=== PATIENT | female | born 1980 | race Caucasian/White ===

== ENCOUNTER 2016-12-10 23:41 | Emergency (ER) | payer BC ==
[2016-12-11 00:02] LABS: CHLORIDE,CL 100 mmol/L (98-107); SODIUM,NA 137 mmol/L (136-145)
[2016-12-11] MEDS: Metoprolol Tartrate 5 MG/5 ML SDV IVPUSH SCH ×2 (00:02→00:30)
[2016-12-11] MEDS ORDERED: LORazepam 2 MG/ML MDV IVPUSH ONE (00:27)
--- NOTE | 2016-12-11 00:48 | EDM.PDOC ---
ED HISTORY OF PRESENT ILLNESS - General Chief Complaint: Chest Pain Stated Complaint: dizzy lightheaded, hot, chest tightness Time Seen by Provider: 12/10/16 23:45 Source of Information: Reports: Patient, EMS, EMS notes reviewed History Limitations: Reports: No limitations - History of Present Illness INITIAL COMMENTS - FREE TEXT/NARRATIVE: Was at work when had sudden onset of increased heart rate. [place] weak. No syncope. Episode resolved prior to ER. Pt anxious upon arrival to ER No previous hx/o same. No chest pain currently. No new meds No travel history No OTC supplements Timing/Duration: Reports: Hour(s):, Resolved prior to arrival Severity: moderate Location, General: Reports: chest Improves with: Reports: None Worsens with: Reports: None Associated Symptoms (General): Reports: weakness - Related Data Allergies/ADRs: Allergies Allergy/AdvReac Type Severity Reaction Status Date / Time No Known Allergies Allergy Verified 12/10/16 23:45 Past Medical History HEENT History: Reports: Impaired vision Cardiovascular History: Reports: None Respiratory History: Reports: None Gastrointestinal History: Reports: PUD Genitourinary History: Reports: None 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: , Spontaneous Musculoskeletal History: Reports: None Neurological History: Reports: None Endocrine/Metabolic History: Reports: None, Obesity/BMI 30+ Hematologic History: Reports: None Immunologic History: Reports: None Oncologic (Cancer) History: Reports: None - Infectious Disease History Infectious Disease History: Reports: Chicken pox - Past Surgical History Head Surgeries/Procedures: Reports: None HEENT Surgical History: Reports: Tonsillectomy Cardiovascular Surgical History: Reports: None Respiratory Surgical History: Reports: None GI Surgical History: Reports: Appendectomy, Bariatric procedure, Colonoscopy, EGD Female Surgical History: Reports: None Endocrine Surgical History: Reports: None Musculoskeletal Surgical History: Reports: None Oncologic Surgical History: Reports: None Dermatological Surgical History: Reports: None - Past Imaging History Past Imaging History: Reports: None. Denies: Mammogram Social & Family History - Family History HEENT: Reports: None Cardiac: Reports: CAD, Heart failure, Hypertension, [place] GI: Reports: None : Reports: None OBGYN: Reports: None Musculoskeletal: Reports: None Neurological: Reports: Alzheimers disease, CVA, Dementia, Parkinson's, Seizure Hematologic: Reports: None Dermatologic: Reports: None Oncologic: Reports: None - Tobacco Use Smoking Status *Q: Current Every Day Smoker Years of Tobacco use: 18 Packs/Tins Daily: 1 Used Tobacco, but Quit: No Second Hand Smoke Exposure: Yes - Caffeine Use Caffeine Use: Reports: Coffee (2 cups per day). Denies: Energy drinks, Soda, Tea - Alcohol Use Days Per Week of Alcohol Use: 3 (DWI in 2006 with no previous problems with alcohol abuse, treatment, etc. 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) ED ROS GENERAL - Review of Systems Review Of Systems: See Below Constitutional: Reports: weakness HEENT: Reports: No symptoms Respiratory: Reports: Shortness of Breath Cardiovascular: Reports: Palpitations GI/Abdominal: Reports: No symptoms ED EXAM, GENERAL - Physical Exam Exam: See Below Exam Limited By: No limitations General Appearance: alert, WD/WN, mild distress Ears: normal external exam Throat/Mouth: Normal oropharynx Head: atraumatic Neck: supple Respiratory/Chest: lungs clear, normal breath sounds Cardiovascular: regular rate, rhythm GI/Abdominal: soft Extremities: normal inspection, no pedal edema Neurological: alert, oriented, no motor/sensory deficits EKG INTERPRETATION Rhythm: NSR Course - Vital Signs Last Recorded V/S: Last Vital Signs Temp 37.2 C 12/10/16 23:46 Pulse 103 H 12/11/16 00:02 Resp 18 12/10/16 23:46 BP 135/87 12/11/16 00:02 Pulse Ox 100 12/10/16 23:46 - Orders/Labs/Meds Orders: Active Orders 24 hr Category Date Time Status EKG Documentation Completion [RC] STAT Care 12/10/16 23:47 Active Labs: Laboratory Tests 12/10/16 12/10/16 12/11/16 Range/Units 23:45 23:50 00:10 WBC 6.8 (4.0-10.2) K/uL RBC 4.72 (3.77-5.09) M/uL Hgb 14.0 (11.7-15.5) g/dL Hct 42.2 (34.0-46.0) % MCV 89.4 D (84.0-98.0) fL MCH 29.7 (28.2-33.3) pg MCHC 33.2 (31.7-36.0) g/dL RDW 13.3 (11.2-14.1) % Plt Count 236 (150-350) K/uL Neut % (Auto) 68.1 (45.0-80.0) % Lymph % (Auto) 22.7 (10.0-50.0) % [place] % (Auto) 7.8 (2.0-14.0) % Eos % (Auto) 0.4 (0.0-5.0) % Baso % (Auto) 1.0 (0.0-2.0) % Neut # (Auto) 4.60 (1.40-7.00) K/uL Lymph # (Auto) 1.54 (0.50-3.50) K/uL [place] # (Auto) 0.53 (0.00-1.00) K/uL Eos # (Auto) 0.03 (0.00-0.50) K/uL Baso # (Auto) 0.07 (0.00-0.20) K/uL D-Dimer, Quantitative 201 (0-400) ng/mL Sodium 137 (136-145) mmol/L Potassium 3.6 (3.5-5.1) mmol/L Chloride 100 (98-107) mmol/L Carbon Dioxide 23.2 (21.0-32.0) mmol/L BUN 10 (7-18) mg/dL Creatinine 0.67 (0.51-1.17) mg/dL Est Cr Clr Drug Dosing 100.24 mL/min Estimated GFR (MDRD) > 60 mL/min Glucose 114 H (74-106) mg/dL Calcium 9.0 (8.5-10.1) mg/dL Total Bilirubin 0.4 (0.2-1.0) mg/dL AST 25 (15-37) U/L ALT 21 (12-78) U/L Alkaline Phosphatase 67 (46-116) IU/L Troponin I 0.000 (0.000-0.056) ng/mL Total Protein 7.6 (6.4-8.2) g/dL Albumin 4.1 (3.4-5.0) g/dL Meds: Medications Discontinued Medications Generic Name Dose Route Start Last Admin Trade Name Julian PRN Reason Stop Dose Admin Lorazepam 0.5 mg 12/11/16 00:27 12/11/16 00:33 Ativan IVPUSH 12/11/16 00:28 0.5 mg ONETIME ONE Administration Metoprolol Tartrate 5 mg 12/10/16 23:45 12/11/16 00:30 Lopressor IVPUSH 12/10/16 23:56 Not Given Q5M YORDY - Re-Assessments/Exams Free Text/Narrative Re-Assessment/Exam: 12/11/16 00:46 Pt stable in ER. Pt observed in ER Work up unremarkable. No futher episodes of tachycardia Departure - Departure Time of Disposition: 02:00 Disposition: Home, Self-Care 01 Clinical Impression: Tachycardia Instructions: Nonspecific Chest Pain, [id number] Forms: ED Department Discharge - My Orders Last 24 Hours: My Active Orders 12/10/16 23:47 EKG Documentation Completion [RC] STAT - Assessment/Plan Last 24 Hours: My Active Orders 12/10/16 23:47 EKG Documentation Completion [RC] STAT
[2016-12-11 02:39] VITALS: BP 135/85
== END 2016-12-11 00:45 | disposition home or self-care (01) ==
LOC: LL.ED 23:41
DX: R00.0 Tachycardia, unspecified (principal); F17.210 Nicotine dependence, cigarettes, uncomplicated; E66.9 Obesity, unspecified; Z68.27 Body mass index [BMI] 27.0-27.9, adult; Z90.49 Acquired absence of other specified parts of digestive tract; Z98.84 Bariatric surgery status; Z98.890 Other specified postprocedural states
CPT/HCPCS: 36415; 80053; 84484; 85025; 85379; 96374; 96375; 99285; J2060; J3490

== ENCOUNTER 2020-10-31 07:13 | Emergency (ER) | payer BC ==
[2020-10-31] MEDS ORDERED: Sodium Chloride 0.9% 10 ML Syringe FLUSH PRN (07:43)
[2020-10-31 07:46] VITALS: PULSE 82
[2020-10-31 08:17] LABS: CHLORIDE,CL 103 mmol/L (98-107); SODIUM,NA 138 mmol/L (136-145)
--- NOTE | 2020-10-31 08:34 | EDM.PDOC ---
ED HPI GENERAL MEDICAL PROBLEM - General Chief Complaint: Syncope Stated Complaint: syncope Time Seen by Provider: 10/31/20 07:45 Source of Information: Reports: Patient History Limitations: Reports: No Limitations - History of Present Illness INITIAL COMMENTS - FREE TEXT/NARRATIVE: Patient had witness syncopal episode at [employer]. No seizure like movements noted. She felt fine during most of her overnight shift until just before this episode. Describes feeling light headed/woozy/hot flash sensation and she went to sit at desk. Syncopal episode happened at desk. Brief. When she woke up she described feeling weak all over. No history of similar episodes. Has history of single panic attack years ago for which she was started on Celexa. Has ongoing chronic anxiety but says she was not feeling anxious when this happened nor does she feel especially anxious here in ER. No new medications/supplements. No recent illness/injuries. No numbness/tingling. No pain complaint. No respiratory/CV/GI/ changes. 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: , Spontaneous Musculoskeletal History: Reports: None Neurological History: Reports: None Endocrine/Metabolic History: Reports: None, Obesity/BMI 30+ Hematologic History: Reports: None Immunologic History: Reports: None Oncologic (Cancer) History: Reports: None - Infectious Disease History Infectious Disease History: Reports: Chicken Pox - Past Surgical History Head Surgeries/Procedures: Reports: None HEENT Surgical History: Reports: Tonsillectomy Cardiovascular Surgical History: Reports: None Respiratory Surgical History: Reports: None GI Surgical History: Reports: Appendectomy, Bariatric Procedure, Colonoscopy, EGD Female Surgical History: Reports: None Endocrine Surgical History: Reports: None Musculoskeletal Surgical History: Reports: None Oncologic Surgical History: Reports: None Dermatological Surgical History: Reports: None - Past Imaging History Past Imaging History: Reports: None. Denies: Mammogram Social & Family History - Family History HEENT: Reports: None Cardiac: Reports: CAD, Heart Failure, Hypertension, [place] GI: Reports: None : Reports: None OBGYN: Reports: None Musculoskeletal: Reports: None Neurological: Reports: Alzheimers Disease, CVA, Dementia, Parkinson's, Seizure Hematologic: Reports: None Dermatologic: Reports: None Oncologic: Reports: None - Tobacco Use Tobacco Use Status *Q: Current Every Day Tobacco User Years of Tobacco use: 22 Packs/Tins Daily: 0.5 - Caffeine Use Caffeine Use: Reports: Coffee Other Caffeine Use: coffee 3-4 cups - Alcohol Use Days Per Week of Alcohol Use: 2 Number of Drinks Per Day: 2 Total Drinks Per Week: 4 - Recreational Drug Use Recreational Drug Use: No - Living Situation & Occupation Living situation: Reports: Occupation: Employed ED ROS GENERAL - Review of Systems Review Of Systems: See Below Constitutional: Reports: No Symptoms HEENT: Reports: No Symptoms Respiratory: Reports: No Symptoms Cardiovascular: Reports: Blood Pressure Problem (BP elevated at [employer] after incident with diastolic around 114. ), Lightheadedness, Syncope. Denies: Chest Pain, Dyspnea on Exertion, Edema, Palpitations, PND GI/Abdominal: Reports: No Symptoms : Reports: No Symptoms Musculoskeletal: Reports: No Symptoms Skin: Reports: No Symptoms Neurological: Reports: Weakness (both arms/legs). Denies: Confusion, Dizziness, Headache, Numbness, Paresthesia, Tingling, Trouble Speaking, Change in Speech Psychiatric: Reports: No Symptoms Hematologic/Lymphatic: Reports: No Symptoms Immunologic: Reports: No Symptoms ED EXAM, GENERAL - Physical Exam Exam: See Below Exam Limited By: No Limitations General Appearance: Alert, WD/WN, No Apparent Distress Eye Exam: Bilateral Eye: EOMI, PERRL Ears: Normal External Exam, Normal Canal, Hearing Grossly Normal Nose: No: Nasal Deformity, Nasal Swelling, Nasal Drainage Throat/Mouth: Normal Lips, Normal Voice, No Airway Compromise Head: Atraumatic, Normocephalic Neck: Supple, Non-Tender, Full Range of Motion Respiratory/Chest: No Respiratory Distress, Lungs Clear, Normal Breath Sounds, No Accessory Muscle Use, Chest Non-Tender Cardiovascular: Normal Peripheral Pulses, Regular Rate, Rhythm, No Edema, No Murmur GI/Abdominal: Soft, Non-Tender, No Distention (Female) Exam: Deferred Rectal (Female) Exam: Deferred Back Exam: No: CVA Tenderness (L), Muscle Spasm Extremities: Non-Tender, Normal Capillary Refill, Other (Patient appears to have to exert increased effort when trying to raise arms in air/legs in air while she is laying on ER bed. Limbs do shake slightly while she is doing this. ) Neurological: Alert, Oriented, CN II-XII Intact, Normal Cognition, Other (No sensory deficits. Has good bilateral sustainability project coordinator strength, good strength legs when asked to sqeeze knees together. ) Psychiatric: Normal Affect, Normal Mood Skin Exam: Warm, Dry, Intact, Normal Color #1 Interpretation EKG Date: 10/31/20 Time: 07:37 Rhythm: NSR Rate (Beats/Min): 78 Conception: Normal P-Wave: Present QRS: Normal ST-T: Normal QT: Normal Comparison: Change From Previous EKG (Previous EKG 2016 showed prolonged QT) Course - Vital Signs Last Recorded V/S: Last Vital Signs Temp 36.7 C 10/31/20 07:30 Pulse 82 10/31/20 08:00 Resp 16 10/31/20 08:00 BP 137/95 H 10/31/20 08:00 Pulse Ox 100 10/31/20 08:00 - Orders/Labs/Meds Orders: Active Orders 24 hr Category Date Time Status EKG Documentation Completion [RC] ASDIRECTED Care 10/31/20 07:22 Active Head wo Cont [CT] Stat Exams 10/31/20 07:21 Taken Sodium Chloride 0.9% [Saline Flush] Med 10/31/20 07:43 Active 10 ml FLUSH ASDIRECTED PRN Saline Lock Insert [OM.PC] Routine Oth 10/31/20 07:43 Ordered Medication Orders Sodium Chloride (Sodium Chloride 0.9% 10 Ml Syringe) 10 ml FLUSH ASDIRECTED PRN PRN Reason: Keep Vein Open Labs: Laboratory Tests 10/31/20 10/31/20 10/31/20 Range/Units 07:40 07:40 07:40 WBC 6.5 (4.0-10.2) K/uL RBC 4.44 (3.77-5.09) M/uL Hgb 13.6 (11.7-15.5) g/dL Hct 41.1 (34.0-46.0) % MCV 92.6 D (84.0-98.0) fL MCH 30.6 (28.2-33.3) pg MCHC 33.1 (31.7-36.0) g/dL RDW 14.4 H (11.2-14.1) % Plt Count 229 (150-350) K/uL Neut % (Auto) 74.5 (45.0-80.0) % Lymph % (Auto) 16.1 (10.0-50.0) % [place] % (Auto) 7.7 (2.0-14.0) % Eos % (Auto) 1.2 (0.0-5.0) % Baso % (Auto) 0.5 (0.0-2.0) % Neut # (Auto) 4.85 (1.40-7.00) K/uL Lymph # (Auto) 1.05 (0.50-3.50) K/uL [place] # (Auto) 0.50 (0.00-1.00) K/uL Eos # (Auto) 0.08 (0.00-0.50) K/uL Baso # (Auto) 0.03 (0.00-0.20) K/uL Sodium 138 (136-145) mmol/L Potassium 3.9 (3.5-5.1) mmol/L Chloride 103 (98-107) mmol/L Carbon Dioxide 23.6 (21.0-32.0) mmol/L BUN 9 (7-18) mg/dL Creatinine 0.72 (0.51-1.17) mg/dL Est Cr Clr Drug Dosing 89.69 mL/min Estimated GFR (MDRD) > 60 mL/min Glucose 112 H (70-99) mg/dL Lactic Acid 1.6 (0.4-2.0) mmol/L Calcium 9.0 (8.5-10.1) mg/dL Magnesium 1.8 (1.8-2.4) mg/dL Total Bilirubin 0.3 (0.2-1.0) mg/dL AST 82 H (15-37) U/L ALT 74 (12-78) U/L Alkaline Phosphatase 78 (46-116) IU/L Troponin I 0.000 (0.000-0.056) ng/mL NT-Pro-B Natriuret Pep 30 (0-125) pg/mL Total Protein 7.1 (6.4-8.2) g/dL Albumin 3.7 (3.4-5.0) g/dL Meds: Medications Generic Name Dose Route Start Last Admin Trade Name Julian PRN Reason Stop Dose Admin Sodium Chloride 10 ml 10/31/20 07:43 Sodium Chloride 0.9% 10 Ml Syringe FLUSH ASDIRECTED PRN Keep Vein Open - Re-Assessments/Exams Free Text/Narrative Re-Assessment/Exam: Patient observed in ER. Gradually felt better. BP much improved compare to what was noted at [facility]. Able to finally sit up on edge of bed and ambulate. Shaky at first, quickly improved. CT of head/CBC/Chem/Trop/Mag/Lactic overall normal. Uncertain etiology for episode. Hypertension and anxiety may have been contributing factors. She may need further workup if symptoms recur. Advised to observe for any other new changes/symptoms. No work tonight. To take it easy. Follow up as needed if she is not back to usual baseline within 24-48 hours. Pt declined observation admission. Also is to start monitoring her BP trends at home. To follow up with PCP with BP log of 1-2 weeks of readings and review trends/start antihypertensive if indicated. Patient encouraged to quit s moking and improve dietary habits. Departure - Departure Time of Disposition: 09:04 Disposition: Home, Self-Care 01 Condition: Good Clinical Impression: Episode of syncope Qualifiers: Syncope type: unspecified Qualified Code(s): R55 - Syncope and collapse - Discharge Information *PRESCRIPTION DRUG MONITORING PROGRAM REVIEWED*: Not Applicable *COPY OF PRESCRIPTION DRUG MONITORING REPORT IN PATIENT JIM: Not Applicable Referrals: Pratik Espinoza PA [Primary Care Provider] - Forms: ED Department Discharge Additional Instructions: No work for tonight. Observe for changes/new symptoms. Get BP machine and check blood pressures 3 times a day/keep a record. Follow up with primary care clinic and review blood pressures. Determine if you need to be on medication. If you feel like you have not fully recovered from today's syncopal episode within 24-48 hours, get rechecked! Highly recommend anti-inflammatory diet. Good starter books include Pegan Diet, What the Heck Can I Cook?, and Primary Blueprint. Sepsis Event Note (ED) - Evaluation Sepsis Screening Result: No Definite Risk - Focused Exam Vital Signs: Vital Signs Temp Pulse Resp BP Pulse Ox 10/31/20 08:00 82 16 137/95 H 100 10/31/20 07:45 82 15 136/89 100 10/31/20 07:30 36.7 C 85 16 138/83 100 10/31/20 07:15 36.9 C 82 16 149/96 H 100 - My Orders Last 24 Hours: My Active Orders 10/31/20 07:21 Head wo Cont [CT] Stat 10/31/20 07:22 EKG Documentation Completion [RC] ASDIRECTED 10/31/20 07:43 Sodium Chloride 0.9% [Saline Flush] 10 ml FLUSH ASDIRECTED PRN Saline Lock Insert [OM.PC] Routine - Assessment/Plan Last 24 Hours: My Active Orders 10/31/20 07:21 Head wo Cont [CT] Stat 10/31/20 07:22 EKG Documentation Completion [RC] ASDIRECTED 10/31/20 07:43 Sodium Chloride 0.9% [Saline Flush] 10 ml FLUSH ASDIRECTED PRN Saline Lock Insert [OM.PC] Routine
[2020-10-31 08:40] VITALS: BP 137/95
== END 2020-10-31 09:30 | disposition home or self-care (01) ==
LOC: LL.ED 07:13
DX: R55 Syncope and collapse (principal); R53.1 Weakness; R42 Dizziness and giddiness; E66.9 Obesity, unspecified; Z68.28 Body mass index [BMI] 28.0-28.9, adult; Z72.0 Tobacco use
CPT/HCPCS: 36415; 70450; 80053; 83605; 83735; 83880; 84484; 85025; 93005; 93010; 99283; 99284-25